=== PATIENT | male | born 1990 | race Caucasian/White ===

== ENCOUNTER 2024-03-12 11:27 | Emergency (ER) | payer OTHER, SELFPAY ==
[2024-03-12 11:31] VITALS: BP 113/68; PULSE 65; RESP 16; TEMP 36.4; O2SAT 100
--- NOTE | 2024-03-12 12:26 | ED.GENADULT ---
HPI - General Adult General Chief complaint: Headache Stated complaint: headache Time Seen by Provider: 03/12/24 12:15 History of Present Illness HPI narrative: this is a 34-year-old male with history of migraines presenting with his typical migraine. He is having a pounding pain on the left side of his head. It is associated with visual scotoma, photophobia and phonophobia. He has had these headaches for years has 1 approximately once per month. He has follow-up with his primary care physician is working getting Neurology appointment. he has not been prescribed afford or maintenance medications for migraines. Patient denies trauma, fevers neck pain, loss of consciousness or confusion. This is his typical headache. Related Data Allergies Allergy/AdvReac Type Severity Reaction Status Date / Time No Known Allergies Allergy Verified 03/12/24 11:41 Exam Narrative: APPEARANCE: No apparent distress. Head: atraumatic. EYES: EOMI, ADRIAN NOSE: Atraumatic NECK: Trachea midline RESPIRATORY: No increased rate of breathing CARDIOVASCULAR: RRR, ABDOMINAL: Non-distended MUSCULOSKELETAl: No obvious deformities NEURO: Alert. Cranial nerves 2-12 grossly intact. Sensation light touch, motor function cerebellar function intact for 4 extremities. Gait exam was normal. SKIN:: Warm, dry. Normal color PSYCHIATRIC: Normal affect Course Vital Signs Vital signs: Vital Signs Temperature 97.5 F L 03/12/24 11:31 Pulse Rate 65 03/12/24 11:31 Respiratory Rate 16 03/12/24 11:31 Blood Pressure 113/68 03/12/24 11:31 Pulse Oximetry 100 03/12/24 11:31 Temperature 97.5 F L 03/12/24 11:31 Pulse Rate 65 03/12/24 11:31 Respiratory Rate 16 03/12/24 11:31 Blood Pressure 113/68 03/12/24 11:31 Pulse Oximetry 100 03/12/24 11:31 Medical Decision Making [facility] Narrative Medical decision making narrative: -Course: 34-year-old male presenting with his typical migraine. No red flags on history or physical. Given a migraine cocktail discharged with primary care follow-up. 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 Positive THC. -Interventions: Compazine, Benadryl Toradol, Tylenol -Shared decision making / Disposition: discharge Vital Signs Vital Signs: Vital Signs Temperature 97.5 F L 03/12/24 11:31 Pulse Rate 65 03/12/24 11:31 Respiratory Rate 16 03/12/24 11:31 Blood Pressure 113/68 03/12/24 11:31 Pulse Oximetry 100 03/12/24 11:31 Temperature 97.5 F L 03/12/24 11:31 Pulse Rate 65 03/12/24 11:31 Respiratory Rate 16 03/12/24 11:31 Blood Pressure 113/68 03/12/24 11:31 Pulse Oximetry 100 03/12/24 11:31 Discharge Plan Discharge Clinical Impression: Migraine Patient Disposition: Home, Self-Care Condition: Stable Instructions: Antibiotic Form, Acute Headache (ED) Additional Instructions: please take Motrin and Tylenol for your headaches. Please follow-up with your primary care physician and ask migraine abortive and maintenance medication. Return if he develops severe headaches, slurred speech,weakness of any extremity or feel like your condition is getting worse. Follow-up/Referrals: PHYSICIAN NOT ON STAFF,NONSTAFF [Primary Care Provider] -
[2024-03-12] MEDS: ACETAMINOPHEN 500 MG TABLET 1000 MG PO (12:41)
[2024-03-12] MEDS: PROCHLORPERAZINE EDISYLATE 10 MG/2 ML VIAL IM (12:42)
[2024-03-12] MEDS: KETOROLAC 15 MG/ML VIAL (*BKC) IM (12:44)
[2024-03-12] MEDS: diphenhydrAMINE HCl INJ 50 MG/ML VIAL 25 MG IM (12:46)
[2024-03-12 12:49] VITALS: BP 103/73; PULSE 62; RESP 15; TEMP 36.4; O2SAT 97
== END 2024-03-12 12:51 | disposition home or self-care (01) ==
PROVIDERS: Emergency Provider Emergency Medicine
DX: G43.909 Migraine, unspecified, not intractable, without status migrainosus (principal)
CPT/HCPCS: 96372; 99284; A9270; J0780; J1200; J1885